=== PATIENT | female | born 1995 | race Caucasian/White ===

== ENCOUNTER 2019-10-06 06:20 | Emergency (ER) | payer OTHER ==
[~2019-10-06] VITALS: Ht 160 cm; Wt 72.7 kg
[2019-10-06] MEDS ORDERED: GABA-845 PO (06:30)
[2019-10-06] MEDS ORDERED: CYCL-707 PO (06:30)
[2019-10-06] MEDS ORDERED: WELLTAB38 PO (06:30)
[2019-10-06] MEDS ORDERED: CYMB1CAP4 PO (06:30)
[2019-10-06] MEDS ORDERED: NORT25CA2 PO (06:30)
[2019-10-06] MEDS ORDERED: TRAZ-186 PO (06:30)
[2019-10-06] MEDS ORDERED: RIZA5TAB52 PO (06:30)
[2019-10-06 07:21] LABS: BASO % 0.1 % (0.0-1.0); EOS % 0.2 % (0.0-3.0); HEMATOCRIT 37.8 % (36.0-47.0); HEMOGLOBIN 12.9 g/dl (12.0-15.5); LYMPH # 1.1 10^3/uL (1.5-5.0); LYMPH % 6.7 % (24.0-44.0); MEAN CORPUSCULAR HEMOGLOBIN 31.3 pg (27.0-33.0); MEAN CORPUSCULAR HGB CONC 34.1 g/dl (32.0-36.5); MEAN CORPUSCULAR VOLUME 91.7 fl (80.0-96.0); MONO # 0.9 10^3/uL (0.0-0.8); MONO % 5.2 % (0.0-5.0); NEUTROPHILS # 14.4 10^3/uL (1.5-8.5); NEUTROPHILS % 87.3 % (36.0-66.0); PLATELET COUNT, AUTOMATED 265 10^3/uL (150-450); RED BLOOD COUNT 4.12 10^6/uL (4.00-5.40); WHITE BLOOD COUNT 16.5 10^3/uL (4.0-10.0)
[2019-10-06 07:41] LABS: ERYTHROCYTE SEDIMENTATION RATE 22 mm/hr (0-20)
[2019-10-06] MEDS ORDERED: KETOROLAC 30 MG/ML 1ML VIAL IV ONE (07:45)
[2019-10-06] MEDS ORDERED: NS 1,000 ML IV ONE (07:45)
[2019-10-06 07:47] LABS: ALT/SGPT 88 U/L (12-78); BILIRUBIN,DIRECT 0.1 MG/DL (0.0-0.2); BILIRUBIN,TOTAL 0.5 MG/DL (0.2-1.0); BLOOD UREA NITROGEN 10 MG/DL (7-18); C REACTIVE PROTEIN QUANTITATIV 3.58 MG/DL (0.00-0.30); CARBON DIOXIDE LEVEL 25 MEQ/L (21-32); CHLORIDE LEVEL 104 MEQ/L (98-107); CPK CREATINE PHOSPHOKINASE 85 U/L (26-192); CREATININE FOR GFR 0.84 MG/DL (0.55-1.30); GLOMERULAR FILTRATION RATE > 60.0 (>60); GLUCOSE, FASTING 121 MG/DL (70-100); POTASSIUM SERUM 3.9 MEQ/L (3.5-5.1); RHEUMATOID FACTOR QUANT < 10.0 IU/ML (<15.0); SODIUM LEVEL 136 MEQ/L (136-145); TOTAL PROTEIN 7.5 GM/DL (6.4-8.2)
[2019-10-06] MEDS ORDERED: MORPHINE 4 MG/ML 1ML VIAL/SYRINGE (J2270) IV ONE (08:15)
[2019-10-06] MEDS ORDERED: NORCO, ANEXSIA 5/325MG TABLET (HYDROcodone/ACETAMINOPHEN) PO ONE (11:00)
[2019-10-06] MEDS ORDERED: ISOVUE-370 76% 100ML VIAL As Ordered ONE (12:08)
--- NOTE | 2019-10-06 12:42 | REP ---
KUB ABDOMEN AND PELVIS: KUB film of the abdomen or pelvis is performed. There is moderate fecal material seen throughout the colon. No dilated small bowel loops are seen. There appears to be a tiny phlebolith inferiorly in the pelvis with no other abnormal calcifications identified in the abdomen or pelvis. There is mild curvature of the thoracolumbar spine convex to the left. IMPRESSION: Moderate fecal retention. Tiny phlebolith inferior pelvis. Electronically Signed by Shaun Pinzon MD 10/06/2019 01:43 P
--- NOTE | 2019-10-06 12:42 | REP ---
CHEST, SINGLE VIEW: There is no evidence of acute infiltrate. No pleural effusion is seen. The heart is normal in size. The mediastinal silhouette is unremarkable. The visualized osseous structures are intact. IMPRESSION: No acute pulmonary disease. Electronically Signed by Shaun Pinzon MD 10/06/2019 01:43 P
[2019-10-06 14:12] VITALS: BP 145/76
--- NOTE | 2019-10-06 16:42 | REP ---
REASON FOR EXAM: Leg pain and tingling. CT cannot rule out a disc extrusion. Vertebral body height and alignment is normal. The disc spaces are symmetric and well maintained throughout. There is no bony cause of foraminal narrowing or central canal stenosis at any imaged level. There is no fracture. There are no lytic or blastic osseous lesions. IMPRESSION: No bony abnormality. Findings and limitations as described above. If discopathy is of clinical concern, then an MRI examination is recommended. Electronically Signed by Amol Izaguirre DO 10/06/2019 04:48 P
[2019-10-06] MEDS ORDERED: KETO10TAB PO (23:23)
[2019-10-06] MEDS ORDERED: VALI5TAB PO (23:23)
== END 2019-10-06 14:13 | disposition home or self-care (01) ==
LOC: M ED 06:20
DX: M79.7 Fibromyalgia (principal); M19.90 Unspecified osteoarthritis, unspecified site; F41.9 Anxiety disorder, unspecified; Z79.899 Other long term (current) drug therapy; Z91.048 Other nonmedicinal substance allergy status
CPT/HCPCS: 71045; 72132; 74018; 80048; 80076; 81001; 82550; 84702; 85025; 85652; 86140; 86431; 87486; 87581; 87633; 87798; 87880; 96361; 96374; 96375; 99284; J1885; J2270; Q9967; U0003

== ENCOUNTER 2019-10-06 20:20 | Emergency (ER) | payer OTHER ==
[~2019-10-06] VITALS: Ht 160 cm; Wt 75.0 kg
[~2019-10-06 20:20] MED LIST: CYCL-707 PO; CYMB1CAP4 PO; GABA-845 PO; NORT25CA2 PO; RIZA5TAB52 PO; TRAZ-186 PO; WELLTAB38 PO
[2019-10-06] MEDS ORDERED: ACETAMINOPHEN 325 MG TAB PO ONE (21:15)
[2019-10-06] MEDS ORDERED: diazePAM 10MG/2ML SYRINGE (J3360 PER 5MG) IM ONE (21:15)
[2019-10-06] MEDS ORDERED: KETOROLAC 30 MG/ML 1ML VIAL IM ONE (21:15)
[2019-10-06 22:07] LABS: BASO % 0.1 % (0.0-1.0); EOS % 0.2 % (0.0-3.0); HEMATOCRIT 36.6 % (36.0-47.0); HEMOGLOBIN 12.3 g/dl (12.0-15.5); LYMPH # 0.9 10^3/uL (1.5-5.0); LYMPH % 5.1 % (24.0-44.0); MEAN CORPUSCULAR HEMOGLOBIN 30.7 pg (27.0-33.0); MEAN CORPUSCULAR HGB CONC 33.6 g/dl (32.0-36.5); MEAN CORPUSCULAR VOLUME 91.3 fl (80.0-96.0); MONO # 0.9 10^3/uL (0.0-0.8); MONO % 5.2 % (0.0-5.0); NEUTROPHILS # 15.3 10^3/uL (1.5-8.5); NEUTROPHILS % 88.8 % (36.0-66.0); PLATELET COUNT, AUTOMATED 222 10^3/uL (150-450); RED BLOOD COUNT 4.01 10^6/uL (4.00-5.40); WHITE BLOOD COUNT 17.2 10^3/uL (4.0-10.0)
[2019-10-06 22:25] LABS: ERYTHROCYTE SEDIMENTATION RATE 26 mm/hr (0-20)
[2019-10-06 22:39] LABS: BLOOD UREA NITROGEN 9 MG/DL (7-18); CALCIUM LEVEL 8.6 MG/DL (8.5-10.1); CARBON DIOXIDE LEVEL 26 MEQ/L (21-32); CHLORIDE LEVEL 103 MEQ/L (98-107); CPK CREATINE PHOSPHOKINASE 82 U/L (26-192); CREATININE FOR GFR 0.76 MG/DL (0.55-1.30); GLOMERULAR FILTRATION RATE > 60.0 (>60); GLUCOSE, FASTING 115 MG/DL (70-100); POTASSIUM SERUM 3.8 MEQ/L (3.5-5.1); SODIUM LEVEL 138 MEQ/L (136-145)
[2019-10-06 23:16] VITALS: BP 119/62
[2019-10-06] MEDS ORDERED: VALI5TAB PO (23:23)
[2019-10-06] MEDS ORDERED: KETO10TAB PO (23:23)
--- NOTE | 2019-10-09 11:29 | ED PDOC ---
Post-Departure Follow-Up Spoke to Jackie Ryder RN - he will reach out to pt to do check. if persistent f ever, chills, back pain will encourage pt for recheck in ed or pcp. to consider mri ls spine w pt's complaints. Helena Don MD October 09, 2019 11:29
== END 2019-10-06 23:39 | disposition home or self-care (01) ==
LOC: M ED 20:20
DX: B34.9 Viral infection, unspecified (principal); M79.18 Myalgia, other site; F41.9 Anxiety disorder, unspecified; G43.909 Migraine, unspecified, not intractable, without status migrainosus; Z91.048 Other nonmedicinal substance allergy status; Z79.899 Other long term (current) drug therapy
CPT/HCPCS: 36415; 80048; 82550; 85025; 85652; 96372; 99283; J1885; J3360

== ENCOUNTER 2019-10-09 15:02 | Emergency (ER) | payer OTHER ==
[~2019-10-09] VITALS: Ht 162.6 cm; Wt 160.0 kg
[~2019-10-09 15:02] MED LIST changes: +KETO10TAB PO; +VALI5TAB PO
[2019-10-09 16:19] LABS: BASO % 0.2 % (0.0-1.0); EOS # 0.1 10^3/uL (0.0-0.5); EOS % 1.2 % (0.0-3.0); HEMATOCRIT 34.9 % (36.0-47.0); HEMOGLOBIN 11.9 g/dl (12.0-15.5); LYMPH # 1.8 10^3/uL (1.5-5.0); LYMPH % 19.9 % (24.0-44.0); MEAN CORPUSCULAR HEMOGLOBIN 31.5 pg (27.0-33.0); MEAN CORPUSCULAR HGB CONC 34.1 g/dl (32.0-36.5); MEAN CORPUSCULAR VOLUME 92.3 fl (80.0-96.0); MONO # 0.5 10^3/uL (0.0-0.8); MONO % 6.1 % (0.0-5.0); NEUTROPHILS # 6.4 10^3/uL (1.5-8.5); NEUTROPHILS % 72.3 % (36.0-66.0); PLATELET COUNT, AUTOMATED 289 10^3/uL (150-450); RED BLOOD COUNT 3.78 10^6/uL (4.00-5.40); WHITE BLOOD COUNT 8.9 10^3/uL (4.0-10.0)
[2019-10-09] MEDS ORDERED: KETOROLAC 30 MG/ML 1ML VIAL IV ONE (16:45)
[2019-10-09 16:56] LABS: ERYTHROCYTE SEDIMENTATION RATE 45 mm/hr (0-20)
--- NOTE | 2019-10-09 17:49 | REPVR ---
PROCEDURE INFORMATION: Exam: MR Lumbar Spine Without Contrast. Exam date and time: 10/09/2019 3:28 PM Age: 23 years old Clinical indication: Low back pain; Additional info: Pain/? Discitis TECHNIQUE: Imaging protocol: Multiplanar magnetic resonance images of the lumbar spine without intravenous contrast. COMPARISON: CT Spine, lumbar w/contrast 10/06/2019 1:01 PM FINDINGS: Lumbar vertebrae show no segmental malalignment. Vertebral body height, morphology and marrow signal are unremarkable. Normal disc height and T2 signal are maintained. Conus terminates at the L1-L2 level with no abnormality in the conus or distal cord. Normal dependent layering of cauda equina nerve roots. T12-L1: No canal stenosis or foraminal narrowing. L1-2: Minimal disc bulge. No canal stenosis or foraminal narrowing. L2-3: No canal stenosis or foraminal narrowing. L3-4: No canal stenosis or foraminal narrowing. L4-5: No canal stenosis or foraminal narrowing. L5-S1: No canal stenosis or foraminal narrowing. No enlarged lymph nodes or prevertebral soft tissue abnormality. No epidural soft tissue edema or fluid. No paraspinous mass or fluid. Imaged distal abdominal aorta is normal in caliber. IMPRESSION: Unremarkable MRI of the lumbar spine for age. No evidence of discitis, osteomyelitis or intraspinal inflammatory process. No significant neural compression at any level and no significant disc disease at any level Electronically signed by: Ilia Stockton On 10/09/2019 17:49:05 PM
[2019-10-09 18:32] VITALS: BP 123/77
== END 2019-10-09 18:33 | disposition home or self-care (01) ==
LOC: M ED 15:02
DX: M79.10 Myalgia, unspecified site (principal); M79.7 Fibromyalgia; M54.5 Low back pain; F17.290 Nicotine dependence, other tobacco product, uncomplicated; F12.10 Cannabis abuse, uncomplicated; Z91.048 Other nonmedicinal substance allergy status; Z79.1 Long term (current) use of non-steroidal anti-inflammatories (NSAID); Z79.899 Other long term (current) drug therapy
CPT/HCPCS: 72148; 83605; 85025; 85652; 86140; 87040; 96374; 99284; J1885